=== PATIENT | male | born 2000 | race Caucasian/White ===

== ENCOUNTER 2018-12-23 15:36 | Emergency (ER) | payer BC ==
[2018-12-23 16:01] VITALS: RESP 18; TEMP 98.7
[2018-12-23] MEDS ORDERED: Sodium Chloride 0.9% 1,000 ML IV ONE (16:20)
--- NOTE | 2018-12-23 16:21 | C.PDOC ---
History Of Present Illness 18 y/o male with no PMHx presents to the ED for evaluation of lower abdominal pain, vomiting, and diarrhea that started this morning. Pain is sharp and intermittent, worse just before vomiting. Associated bilateral lower back pain, worse with diarrhea. States he has been unable to tolerate PO today. The vomiting and diarrhea is non-bloody, approximately 5-10 episodes today. Patient has not taken any medication for symptom relief. He denies any recent travel, chest pain, fever, chills, back pain, testicular pain, penile discharge, SOB, cough, congestion, or urinary complaints. No known sick contacts. Time Seen by Provider: 12/23/18 15:54 Chief Complaint (Nursing): Abdominal Pain History Per: Patient History/Exam Limitations: no limitations Onset/Duration Of Symptoms: Hrs Current Symptoms Are (Timing): Still Present Location Of Pain/Discomfort: RUQ, RLQ Associated Symptoms: Nausea, Vomiting, Diarrhea, Loss Of Appetite Past Medical History Reviewed: Historical Data, Nursing Documentation, Vital Signs Vital Signs: Last Vital Signs Temp 98.7 F 12/23/18 15:54 Pulse 65 12/23/18 15:54 Resp 18 12/23/18 15:54 BP 110/75 12/23/18 15:54 Pulse Ox 97 12/23/18 15:54 - Medical History PMH: No Chronic Diseases Surgical History: Tonsillectomy Family History: States: No Known Family Hx - Social History Hx Tobacco Use: No Hx Alcohol Use: No Hx Substance Use: No - Immunization History Hx Tetanus Toxoid Vaccination: No Hx Influenza Vaccination: No Hx Pneumococcal Vaccination: No Review Of Systems Except As Marked, All Systems Reviewed And Found Negative. Constitutional: Negative for: Fever, Chills Eyes: Negative for: Vision Change ENT: Negative for: Nose Congestion, Throat Pain Cardiovascular: Negative for: Chest Pain, Palpitations, Light Headedness Respiratory: Negative for: Cough, Shortness of Breath Gastrointestinal: Positive for: Nausea, Vomiting, Abdominal Pain, Diarrhea. Negative for: Hematochezia, Hematemesis Genitourinary: Negative for: Dysuria, Hematuria, Penile Discharge, Scrotal Pain Musculoskeletal: Negative for: Neck Pain, Shoulder Pain, Back Pain Skin: Negative for: Rash Neurological: Negative for: Weakness, Numbness, Headache, Dizziness Physical Exam - Physical Exam Appears: Non-toxic, No Acute Distress, Other (actively vomiting in the ED) Skin: Warm, Dry, No Rash Head: Atraumatic, Normacephalic Eye(s): bilateral: Normal Inspection, PERRL, EOMI Oral Mucosa: Moist Throat: Normal Neck: Normal ROM, Supple, No Other (no meningeal signs) Chest: Symmetrical Cardiovascular: Rhythm Regular, No Murmur Respiratory: Normal Breath Sounds, No Accessory Muscle Use, Other (Speaking in full sentences) Gastrointestinal/Abdominal: Bowel Sounds (normoactive), Soft, Tenderness (to the RLQ and LLQ), No Guarding, No Rebound Back: Normal Inspection, No CVA Tenderness Extremity: Normal ROM, Capillary Refill (<2s) Extremity: Bilateral: Atraumatic, Normal Color And Temperature Pulses: Left Radial: Normal, Right Radial: Normal Neurological/Psych: Oriented x3, Normal Speech, Normal Cranial Nerves, Normal Motor, Normal Sensation Gait: Steady ED Course And Treatment - Laboratory Results Result Diagrams: 12/23/18 16:36 12/23/18 16:36 O2 Sat by Pulse Oximetry: 97 (RA) Pulse Ox Interpretation: Normal - Radiology CXR: Interpreted by Me, Viewed By Me CXR Interpretation: Yes: No Acute Disease. No: Infiltrates - CT Scan/US CT Abdomen/Pelvis Other Rad Studies (CT/US): Read By Radiologist, Radiology Report Reviewed CT/US Interpretation: Accession No. : [id number]. Patient Name / ID : REBECA RAMIREZ / [id number]. Exam Date : 12/23/2018 17:56:45 ( Approved ). Study Comment : Sex / Age : M / 18Y. Creator : Surendra Hooks MD. Dictator : Surendra Hooks MD. Disc Inspector : Engineering Team Supervisor : Surendra Hooks MD. Approver2 : Report Date : 12/23/2018 18:39:08. My Comment : . Date of service: 12/23/2018. PROCEDURE: CT Abdomen and Pelvis with contrast. HISTORY: abd pain. COMPARISON: None. TECHNIQUE: Contrast dose: 100 mL Omnipaque 300. Radiation dose: Total exam DLP = 1153.12 mGy-cm. This CT exam was performed using one or more of the following dose reduction techniques: Automated exposure control, adjustment of the mA and/or kV according to patient size, and/or use of iterative reconstruction technique. FINDINGS: LOWER THORAX: Unremarkable. LIVER: Normal size, contour and attenuation. 6 mm nonspecific low-attenuation lesion in the inferior right hepatic lobe. No other mass. No biliary dilatation. GALLBLADDER AND BILE DUCTS: Unremarkable. PANCREAS: Unremarkable. No gross lesion or ductal dilatation. SPLEEN: Mild splenomegaly. The spleen measures approximately 15 cm in greatest dimension. No focal mass. ADRENALS: Unremarkable. No mass. KIDNEYS AND URETERS: Unremarkable. No hydronephrosis. No solid mass. VASCULATURE: Unremarkable. No aortic aneurysm. No aortic atherosclerotic calcification or mural plaque present. BOWEL: Unremarkable. No obstruction. No gross mural thickening. APPENDIX: Normal appendix. PERITONEUM: Unremarkable. No free fluid. No free air. LYMPH NODES: Unremarkable. No enlarged lymph nodes. BLADDER: Poorly distended. Bladder wall mildly thickened, most likely artifactual due to inadequate distention. REPRODUCTIVE: Normal prostate. BONES: No acute fracture. OTHER FINDINGS: None. IMPRESSION: No acute abnormality. Mildly thickened bladder wall likely artifactual due to inadequate distention. Minor findings as above. Medical Decision Making Medical Decision Making: Impression: Abdominal pain, vomiting Initial Plan: - Blood work w/ coags - UDS - Urinalysis - Chest x-ray - CT Abdomen/Pelvis - IV fluids - 4mg IV zofran - 20mg IV pepcid - 30mg IV toradol - Reassess after meds Labs reviewed. WBC 13K, otherwise unremarkable CT scan is negative for appendicitis or other acute abdominal pathology. Patient educated on findings and likely diagnosis. Case discussed with ED attending Dr. Aviles, who agrees with plan of care and disposition. 18:40 On reevaluation patient remains afebrile and reports resolution of symptoms. Patient instructed to continue symptomatic treatment and to increase fluids. Diagnostic testing results and plan of care discussed with patient. Strict instructions given regarding prescription use, importance of followup, and signs/symptoms to return to ER including worsening abdominal pain, SOB, chest pain, fever, chills or any other new/worsening symptoms. Pt verbalized understanding of discussion. Patient is A&Ox3, ambulating with steady gait, with vital signs stable for discharge. Disposition Counseled Patient/Family Regarding: Studies Performed, Diagnosis, Need For Followup, Rx Given - Disposition Referrals: [facility] [Outside] Disposition: HOME/ ROUTINE Disposition Time: 18:51 Condition: IMPROVED Additional Instructions: Pepcid every 12 hours as needed for indigestion Bentyl every 8 hours as needed for abdominal cramping Tylenol/Ibuprofen for pain Increase fluids Rest, no strenuous activity Followup with primary doctor within 2 days Return to ER with any new/worsening symptoms Prescriptions: Dicyclomine [Dicyclomine HCl] 10 mg PO Q8H PRN #15 cap PRN Reason: Pain, Moderate (4-7) Famotidine [Pepcid] 20 mg PO Q12H PRN #10 tab PRN Reason: Pain, Moderate (4-7) Instructions: Acute Abdomen (Belly Pain), Adult (DC), Nausea and Vomiting, Adult (DC) Forms: [employer] (Spanish), School Excuse - POA Present On Arrival: None - Clinical Impression Clinical Impression: Abdominal pain, Nausea vomiting and diarrhea - PA / RDA / Resident Statement MD/DO has reviewed & agrees with the documentation as recorded. - Scribe Statement The provider has reviewed the documentation as recorded by the Tanneribdana Stewart All medical record entries made by the Tanneribdana were at my direction and personally dictated by me. I have reviewed the chart and agree that the record accurately reflects my personal performance of the history, physical exam, medical decision making, and the department course for this patient. I have also personally directed, reviewed, and agree with the discharge instructions and disposition.
[2018-12-23] MEDS ORDERED: Sodium Chloride 0.9% 250 ML IV ONE (16:29)
[2018-12-23 16:46] LABS: BASO % 0.3 % (0.0-2.0); EOS # 0.1 K/uL (0.0-0.7); EOS % 0.4 % (0.0-4.0); HEMOGLOBIN 17.8 g/dL (12.0-18.0); LYMPH # 0.2 K/uL (1.0-4.3); LYMPH % 1.8 % (20.0-40.0); MEAN CELL VOLUME 85.1 fL (80.0-94.0); MEAN CORPUSCULAR HEMOGLOBIN 28.5 pg (27.0-31.0); MEAN CORPUSCULAR HGB CONC 33.5 g/dL (33.0-37.0); MEAN PLATELET VOLUME 8.3 fL (7.2-11.7); MONO # 0.8 K/uL (0.0-0.8); NEUT % 91.5 % (50.0-75.0); NRBC % 0.1 % (0.0-2.0); PLATELET COUNT 205 K/uL (130-400); RBC 6.24 Mil/uL (4.40-5.90); RED CELL DISTRIBUTION WIDTH 13.5 % (11.5-14.5); WHITE BLOOD COUNT 13.1 K/uL (4.8-10.8)
[2018-12-23 16:58] LABS: INR 1.2; PROTHROMBIN TIME 13.2 SECONDS (9.7-12.2)
[2018-12-23 17:12] LABS: ALB/GLOB RATIO 1.8 (1.0-2.1); ALBUMIN 5.1 g/dL (3.5-5.0); ALT/SGPT 32 U/L (21-72); AST/SGOT 28 U/L (17-59); BLOOD UREA NITROGEN 17 mg/dL (9-20); CALCIUM 9.7 mg/dl (8.6-10.4); GFR NON-AFRICAN AMERICAN > 60; LIPASE 72 U/L (23-300)
[2018-12-23 17:32] LABS: BANDS 9 % (0-2); BASOPHIL 1 % (0-2); LYMPHOCYTE 1 % (20-40); MONOCYTE 9 % (0-10); NEUTROPHIL 77 % (50-75); PLASMACYTES 3 (0-0); PLATELET ESTIMATE NORMAL (NORMAL); TOTAL CELLS COUNTED 100
[2018-12-23] MEDS ORDERED: Iohexol 300 100 ML IJ ONE (17:34)
[2018-12-23 18:29] LABS: SQUAMOUS EPITHIAL < 1 /hpf (0-5); URINE BILIRUBIN NEGATIVE (NEGATIVE); URINE BLOOD NEGATIVE (NEGATIVE); URINE CLARITY Clear (Clear); URINE COLOR Yellow (YELLOW); URINE GLUCOSE (UA) NORMAL (Normal); URINE LEUKOCYTE ESTERASE NEG Leu/uL (Negative); URINE PROTEIN NEGATIVE (NEGATIVE); URINE UROBILINOGEN NORMAL mg/dL (0.2-1.0)
--- NOTE | 2018-12-23 18:42 | CT ---
Date of service: 12/23/2018 PROCEDURE: CT Abdomen and Pelvis with contrast HISTORY: abd pain COMPARISON: None. TECHNIQUE: Contrast dose: 100 mL Omnipaque 300 Radiation dose: Total exam DLP = 1153.12 mGy-cm. This CT exam was performed using one or more of the following dose reduction techniques: Automated exposure control, adjustment of the mA and/or kV according to patient size, and/or use of iterative reconstruction technique. FINDINGS: LOWER THORAX: Unremarkable. LIVER: Normal size, contour and attenuation. 6 mm nonspecific low-attenuation lesion in the inferior right hepatic lobe. No other mass. No biliary dilatation. GALLBLADDER AND BILE DUCTS: Unremarkable. PANCREAS: Unremarkable. No gross lesion or ductal dilatation. SPLEEN: Mild splenomegaly. The spleen measures approximately 15 cm in greatest dimension. No focal mass. ADRENALS: Unremarkable. No mass. KIDNEYS AND URETERS: Unremarkable. No hydronephrosis. No solid mass. VASCULATURE: Unremarkable. No aortic aneurysm. No aortic atherosclerotic calcification or mural plaque present. BOWEL: Unremarkable. No obstruction. No gross mural thickening. APPENDIX: Normal appendix. PERITONEUM: Unremarkable. No free fluid. No free air. LYMPH NODES: Unremarkable. No enlarged lymph nodes. BLADDER: Poorly distended. Bladder wall mildly thickened, most likely artifactual due to inadequate distention. REPRODUCTIVE: Normal prostate BONES: No acute fracture. OTHER FINDINGS: None. IMPRESSION: No acute abnormality. Mildly thickened bladder wall likely artifactual due to inadequate distention. Minor findings as above.
[2018-12-23 18:53] LABS: BARBITURATES, UR NEGATIVE (NEGATIVE); BENZODIAZEPINES, UR NEGATIVE (NEGATIVE); OPIATES, UR NEGATIVE (NEGATIVE); PHENCYCLIDINE, UR NEGATIVE (NEGATIVE)
[2018-12-23 19:06] VITALS: BP 124/73; PULSE 101
[2018-12-23 19:10] VITALS: O2SAT 97
--- NOTE | 2018-12-24 10:53 | RAD ---
Date of service: 12/23/2018 PROCEDURE: CHEST RADIOGRAPH, 1 VIEW HISTORY: Abdominal pain COMPARISON: None available. FINDINGS: LUNGS: The lungs are well inflated and clear. PLEURA: No pneumothorax or pleural effusion. CARDIOVASCULAR: The heart is normal in size. No aortic atherosclerotic calcifications present. OSSEOUS STRUCTURES: Within normal limits for the patient's age. VISUALIZED UPPER ABDOMEN: Normal. OTHER FINDINGS: None. IMPRESSION: No active pulmonary disease.
== END 2018-12-23 19:05 | disposition home or self-care (01) ==
LOC: C.ER 15:36
DX: R10.31 Right lower quadrant pain (principal); R11.2 Nausea with vomiting, unspecified; R19.7 Diarrhea, unspecified
CPT/HCPCS: 71045; 74177; 80053; 81001; 83690; 85025; 85610; 85730; 87086; 96361; 96372; 96374; 96375; 99284; G0480; J1885; J2405; J7030; Q9967